=== PATIENT | female | born 1985 | race Caucasian/White ===

== ENCOUNTER 2017-09-11 09:10 | Emergency (ER) | payer BC, OTHER ==
[~2017-09-11] VITALS: Ht 160 cm; Wt 71.9 kg
[2017-09-11] MEDS ORDERED: LEVONOR/ETHI (09:17)
[2017-09-11] MEDS ORDERED: PEPC10TA6 PO (09:17)
[2017-09-11] MEDS ORDERED: MYLA1SUS PO (09:17)
[2017-09-11] MEDS ORDERED: TUMS500C PO (09:17)
[2017-09-11] MEDS ORDERED: SUCRALFATE SUSP 1GM/10ML UD PO ONE (10:00)
[2017-09-11] MEDS ORDERED: ONDANSETRON 4 MG ORAL DISINTEGRATING TAB (S0181) PO ONE (10:00)
[2017-09-11] MEDS ORDERED: GI COCKTAIL 50ML BTL(HYOSCYAMINE/MAALOX/LIDOCAINE VISCOUS)(1:3:1) PO ONE (10:00)
[2017-09-11] MEDS ORDERED: PANTOPRAZOLE 40MG TAB (PROTONIX) PO ONE (10:00)
[2017-09-11 10:09] LABS: BASO % 0.8 % (0.0-1.0); EOS # 0.1 10^3/uL (0.0-0.50); EOS % 3.5 % (0.0-3.0); LYMPH # 1.8 10^3/uL (1.5-4.5); LYMPH % 44.6 % (24.0-44.0); MEAN CORPUSCULAR HGB CONC 33.3 g/dl (32.0-36.5); MEAN CORPUSCULAR VOLUME 90.4 fl (80.0-96.0); MONO # 0.3 10^3/uL (0.0-0.8); MONO % 8.1 % (0.0-5.0); NEUTROPHILS # 1.7 10^3/uL (1.8-7.7); PLATELET COUNT, AUTOMATED 245 10^3/uL (150-450); RED CELL DISTRIBUTION WIDTH 12.5 % (11.5-14.5)
[2017-09-11 10:39] LABS: ALBUMIN 3.5 GM/DL (3.2-5.2); ALKALINE PHOSPHATASE 33 U/L (45-117); ALT/SGPT 24 U/L (12-78); ANION GAP 4 MEQ/L (8-16); AST/SGOT 15 U/L (7-37); BILIRUBIN,DIRECT < 0.1 MG/DL (0.0-0.2); BILIRUBIN,TOTAL 0.2 MG/DL (0.2-1.0); BLOOD UREA NITROGEN 7 MG/DL (7-18); CALCIUM LEVEL 9.1 MG/DL (8.5-10.1); CARBON DIOXIDE LEVEL 33 MEQ/L (21-32); CHLORIDE LEVEL 106 MEQ/L (98-107); CREATININE FOR GFR 0.67 MG/DL (0.55-1.02); GLOMERULAR FILTRATION RATE > 60.0 (>60); GLUCOSE, FASTING 85 MG/DL (70-105); POTASSIUM SERUM 3.9 MEQ/L (3.5-5.1); SODIUM LEVEL 143 MEQ/L (136-145)
[2017-09-11] MEDS ORDERED: SUCR1SS PO (11:39)
[2017-09-11] MEDS ORDERED: ZOFR4TAB3 PO (11:39)
[2017-09-11] MEDS ORDERED: PROT1TAB2 PO (11:39)
[2017-09-11 11:43] VITALS: BP 137/85
--- NOTE | 2017-09-11 11:43 | REP ---
RIGHT UPPER QUADRANT ULTRASOUND: Real-time sonographic evaluation of the right upper quadrant performed. The gallbladder demonstrates no evidence of intraluminal sludge or calculi, wall thickening or pericholecystic fluid. There is no intrahepatic or extrahepatic biliary dilatation, common bile duct measuring 3 mm in diameter. Liver and pancreas demonstrate homogeneous echotexture with no gross mass. Right kidney demonstrates no hydronephrosis or nephrolithiasis with normal size at 9.6 cm in length. IMPRESSION: Negative right upper quadrant ultrasound. Signed by Avi Schuster MD 09/11/2017 11:54 A
--- NOTE | 2017-09-11 17:08 | ECGEPIP ---
Stationary ECG Study [facility] - ED Test Date: 2017-09-11 Pat Name: BRAXTON GUILLERMO Department: Room: - Gender: F [employer] Liaison: gelacio : 1985 Requested By: Orin Fonseca Order Number: [id number] Reading MD: Orin Fonseca Measurements Intervals [place] Rate: 74 P: 57 MN: 117 QRS: 46 QRSD: 110 T: 42 QT: 345 QTc: 384 Interpretive Statements SINUS RHYTHM WITH SINUS ARRHYTHMIA WITH SHORT MN INTERVAL NO PRIOR FOR COMPARISON Electronically Signed On 09-11-2017 17:08:04 EST by Orin Fonseca
== END 2017-09-11 11:45 | disposition home or self-care (01) ==
LOC: M ED 09:10
DX: K29.00 Acute gastritis without bleeding (principal); R10.13 Epigastric pain; Z82.49 Family history of ischemic heart disease and other diseases of the circulatory system

== ENCOUNTER → 2017-10-27 | Outpatient (CLI) | payer OTHER ==
[2017-10-29 00:07] LABS: TISSUE TRANSGLUTAMINASE IgA <2 U/mL (0-3)
== END ==
LOC: M LAB 12:56
DX: R07.9 Chest pain, unspecified (principal)
CPT/HCPCS: 82784

== ENCOUNTER → 2017-11-09 | Outpatient (REF) | payer OTHER | LOC: M LAB REF 11:42 | DX: R07.9 Chest pain, unspecified (principal) | CPT/HCPCS: 87507 ==

== ENCOUNTER 2017-11-12 09:07 | Day surgery (SDC) | payer OTHER ==
[~2017-11-12 09:07] MED LIST: LIDOCAINE 2% MDV 20 ML VIAL As Ordered; PROPOFOL 200 MG/20 ML VIAL As Ordered
[2017-11-12] MEDS: NS 1,000 ML IV (09:30)
[2017-11-12] MEDS ORDERED: PROPOFOL 200 MG/20 ML VIAL As Ordered ×2 (11:37→11:38)
== END 2017-11-12 12:29 | disposition home or self-care (01) ==
LOC: M OPP 09:07
DX: K64.4 Residual hemorrhoidal skin tags (principal); K58.0 Irritable bowel syndrome with diarrhea; R19.4 Change in bowel habit; R12 Heartburn; R07.9 Chest pain, unspecified; R63.4 Abnormal weight loss; G47.33 Obstructive sleep apnea (adult) (pediatric); Z79.899 Other long term (current) drug therapy; Z88.8 Allergy status to other drugs, medicaments and biological substances
CPT/HCPCS: 45378

== ENCOUNTER 2020-03-11 20:05 | Emergency (ER) | payer OTHER ==
[~2020-03-11] VITALS: Ht 160 cm; Wt 70.9 kg
[~2020-03-11 20:05] MED LIST changes: +LEVONOR/ETHI; -LIDOCAINE 2% MDV 20 ML VIAL As Ordered; +MYLA1SUS PO; +PEPC10TA6 PO; -PROPOFOL 200 MG/20 ML VIAL As Ordered; +PROT1TAB2 PO; +SUCR1SS PO; +TUMS500C PO; +ZOFR4TAB14 PO
[2020-03-11] MEDS ORDERED: KETO0.02 (20:21)
[2020-03-11] MEDS ORDERED: LEVO0.1T (20:21)
[2020-03-11] MEDS ORDERED: NAC600CA (20:21)
[2020-03-11] MEDS ORDERED: NIFE1TAB52 (20:21)
[2020-03-11] MEDS ORDERED: ACET-683 PO (20:21)
[2020-03-11] MEDS ORDERED: HYDR200T3 (20:21)
[2020-03-11] MEDS ORDERED: LORazepam 2 MG/ML VIAL IV STA (20:43)
[2020-03-11] MEDS ORDERED: NS 1,000 ML IV ONE ×2 (20:45)
[2020-03-11] MEDS ORDERED: KETOROLAC 30 MG/ML 1ML VIAL IV ONE (20:45)
[2020-03-11 21:15] LABS: BASO # 0.1 10^3/uL (0.0-0.2); BASO % 0.8 % (0.0-1.0); EOS # 0.1 10^3/uL (0.0-0.5); EOS % 1.4 % (0.0-3.0); HEMATOCRIT 38.8 % (36.0-47.0); HEMOGLOBIN 13.3 g/dl (12.0-15.5); LYMPH # 1.9 10^3/uL (1.5-5.0); LYMPH % 29.4 % (24.0-44.0); MEAN CORPUSCULAR HGB CONC 34.3 g/dl (32.0-36.5); MEAN CORPUSCULAR VOLUME 87.6 fl (80.0-96.0); MONO # 0.5 10^3/uL (0.0-0.8); MONO % 7.7 % (0.0-5.0); NEUTROPHILS # 3.9 10^3/uL (1.5-8.5); NEUTROPHILS % 60.5 % (36.0-66.0); PLATELET COUNT, AUTOMATED 192 10^3/uL (150-450); RED BLOOD COUNT 4.43 10^6/uL (4.00-5.40); WHITE BLOOD COUNT 6.4 10^3/uL (4.0-10.0)
[2020-03-11 21:34] LABS: INR 0.93; PARTIAL THROMBOPLASTIN TIME 24.3 SECONDS (25.0-38.4); PROTHROMBIN TIME 12.2 SECONDS (11.8-14.0)
[2020-03-11 22:04] LABS: CPK CREATINE PHOSPHOKINASE 160 U/L (26-192); ETHYL ALCOHOL (ETHANOL) < 0.003 % (0.000-0.010); HCG, SERUM QUANTITATIVE < 1.0 MIU/ML; MB/CK RELATIVE INDEX 0.62 (< OR =4); TROPONIN I < 0.02 NG/ML (< 0.10)
--- NOTE | 2020-03-11 22:25 | REPVR ---
PROCEDURE INFORMATION: Exam: CT Head Without Contrast Exam date and time: 03/11/2020 10:13 PM Age: 34 years old Clinical indication: Dizziness; Additional info: CVA TECHNIQUE: Imaging protocol: Computed tomography of the head without contrast. Radiation optimization: All CT scans at this facility use at least one of these dose optimization techniques: automated exposure control; mA and/or kV adjustment per patient size (includes targeted exams where dose is matched to clinical indication); or iterative reconstruction. COMPARISON: No relevant prior studies available. FINDINGS: Brain: There is no evidence for an acute large vessel territorial infarct, intracranial hemorrhage, mass, mass effect, or herniation. The cortical gyration pattern, basal ganglia, thalami, brainstem, and cerebellum are normal in appearance. Ventricles: Normal. No ventriculomegaly. Bones/joints: Unremarkable. No acute fracture. Sinuses: Visualized sinuses are well-aerated. No air-fluid levels. Mastoid air cells: Visualized mastoid air cells are well-aerated. Soft tissues: Unremarkable. IMPRESSION: No acute intracranial abnormality. Electronically signed by: Henri Teradwell On 03/11/2020 22:24:33 PM
[2020-03-11 23:00] VITALS: BP 133/86
--- NOTE | 2020-03-12 11:56 | REP ---
REASON: Stroke-like symptoms. COMPARISON: Frontal view obtained as part of an abdominal series 11/29/2010. FINDINGS: The technique utilized in obtaining the radiograph has magnified the cardiac silhouette and accentuated the interstitial markings. The superior mediastinal structures are midline. The cardiac silhouette is unremarkable in size, shape, and position. The diaphragmatic surfaces of the lungs are regular, and the costophrenic angles are clear. The pulmonary [place] are clear. The imaged osseous structures are intact. IMPRESSION: There is no acute cardiopulmonary disease. Electronically Signed by Dallin Low DO 03/12/2020 11:59 A
--- NOTE | 2020-03-12 16:00 | ECGEPIP ---
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
== END 2020-03-11 23:38 | disposition home or self-care (01) ==
LOC: M ED 20:05
DX: R51 Headache (principal); M32.9 Systemic lupus erythematosus, unspecified; Z79.899 Other long term (current) drug therapy
CPT/HCPCS: 36415; 70450; 71045; 80047; 82550; 82553; 84702; 85025; 85610; 85730; 86850; 86900; 86901; 93005; 93041; 94760; 96374; 96375; 99285; G0480; J1885; J2060

== ENCOUNTER 2022-06-11 21:16 | Day surgery (SDC) | payer OTHER ==
[~2022-06-11] VITALS: Ht 160 cm; Wt 84.1 kg
[~2022-06-11 21:16] MED LIST changes: +ACET-683 PO; +HYDR200T3; +KETO0.02; +LEVO0.1T; +NAC600CA; +NIFE1TAB52
[2022-06-12] VITALS (9 sets, daily range): BP systolic 97–125; BP diastolic 60–73
[2022-06-12 00:37] LABS: BASO % 0.3 % (0.0-1.0); EOS # 0.1 10^3/uL (0.0-0.5); EOS % 0.7 % (0.0-3.0); HEMATOCRIT 37.8 % (36.0-47.0); HEMOGLOBIN 12.7 g/dl (12.0-15.5); LYMPH # 1.7 10^3/uL (1.5-5.0); LYMPH % 14.5 % (24.0-44.0); MEAN CORPUSCULAR HGB CONC 33.6 g/dl (32.0-36.5); MEAN CORPUSCULAR VOLUME 89.4 fl (80.0-96.0); MONO # 0.9 10^3/uL (0.0-0.8); MONO % 7.9 % (2.0-8.0); NEUTROPHILS % 76.3 % (36.0-66.0); PLATELET COUNT, AUTOMATED 195 10^3/uL (150-450); RED BLOOD COUNT 4.23 10^6/uL (4.00-5.40); WHITE BLOOD COUNT 11.8 10^3/uL (4.0-10.0)
[2022-06-12] MEDS ORDERED: ISOVUE-370 76% 100ML VIAL As Ordered ONE (00:47)
[2022-06-12 01:11] LABS: ALBUMIN 3.6 GM/DL (3.2-5.2); ALT/SGPT 37 U/L (12-78); BILIRUBIN,DIRECT 0.1 MG/DL (0.0-0.2); BILIRUBIN,TOTAL 0.3 MG/DL (0.2-1.0); BLOOD UREA NITROGEN 9 MG/DL (7-18); CALCIUM LEVEL 9.6 MG/DL (8.5-10.1); CARBON DIOXIDE LEVEL 27 MEQ/L (21-32); CHLORIDE LEVEL 104 MEQ/L (98-107); CREATININE FOR GFR 0.67 MG/DL (0.55-1.30); GLOMERULAR FILTRATION RATE > 60.0 (>60); GLUCOSE, FASTING 104 MG/DL (70-100); LIPASE 124 U/L (73-393); POTASSIUM SERUM 3.7 MEQ/L (3.5-5.1); SODIUM LEVEL 138 MEQ/L (136-145); TOTAL PROTEIN 6.5 GM/DL (6.4-8.2)
[2022-06-12 01:24] LABS: HCG, SERUM QUALITATIVE NEGATIVE (NEGATIVE)
[2022-06-12] MEDS ORDERED: cefTRIAXone SOD 1 GM in D5W MINI-BAG PLUS 50 ML IV ONE (03:10)
[2022-06-12] MEDS ORDERED: metroNIDAZOLE 500 MG in IV 1 EA IV ONE (03:10)
[2022-06-12] MEDS ORDERED: MORPHINE 2 MG/ML 1ML VIAL IV ONE (03:15)
[2022-06-12] MEDS ORDERED: ONDANSETRON 4MG 2ML VIAL IV ONE (03:15)
[2022-06-12] MEDS: NS 1,000 ML IV SCH ×5 (03:30→19:53)
[2022-06-12 03:38] LABS: C REACTIVE PROTEIN QUANTITATIV 9.49 MG/DL (0.00-0.30)
[2022-06-12 04:01] LABS: ERYTHROCYTE SEDIMENTATION RATE 15 mm/hr (0-20)
[2022-06-12 04:21] LABS: RSV AMPLIFICATION NEGATIVE (NEGATIVE)
[2022-06-12] MEDS ORDERED: HOME MED LIST COMPLETE! XX SCH (05:15)
[2022-06-12] MEDS ORDERED: LIDOCAINE 2% 100MG/5ML SDV (FOR ANES.) As Ordered ONE (05:27)
[2022-06-12] MEDS ORDERED: propofoL 200 MG/20 ML VIAL As Ordered ONE (05:27)
[2022-06-12] MEDS ORDERED: ROCURONIUM BROMIDE 50 MG/5 ML VIAL As Ordered ONE (05:28)
[2022-06-12] MEDS ORDERED: dexameTHASONE 4 MG/ML 1ML VIAL (J1100 PER 1MG) As Ordered ONE (05:29)
[2022-06-12] MEDS ORDERED: fentaNYL 250 MCG/5 ML INJECTION As Ordered ONE (05:29)
[2022-06-12] MEDS ORDERED: ONDANSETRON 4MG 2ML VIAL As Ordered ONE (05:29)
[2022-06-12] MEDS ORDERED: MIDAZOLAM INJ 2MG/2ML VIAL (J2250 PER 1MG) As Ordered ONE (05:29)
[2022-06-12] MEDS ORDERED: BUPIVACAINE/EPIN 0.25% 30 ML VIAL As Ordered ONE (05:29)
[2022-06-12] MEDS ORDERED: SUCCINYLCHOLINE 100 MG/5 ML SYRINGE (J0330) As Ordered ONE (06:03)
[2022-06-12] MEDS ORDERED: SUGAMMADEX SODIUM 500 MG/5 ML VIAL (BRIDION) As Ordered ONE (06:40)
[2022-06-12] MEDS ORDERED: KETOROLAC 60MG 2ML VIAL As Ordered ONE (06:40)
[2022-06-12] MEDS ORDERED: ACETAMINOPHEN 1000MG 100ML IV BTL (OFIRMEV) (J0131 PER 10MG) As Ordered ONE (06:52)
[2022-06-12] MEDS ORDERED: oxyCODONE 5MG TAB PO PRN (06:55)
[2022-06-12] MEDS ORDERED: LR 1,000 ML IV SCH (06:55)
[2022-06-12] MEDS ORDERED: fentaNYL 100 MCG/2 ML INJECTION IV PRN (06:55)
[2022-06-12] MEDS ORDERED: ONDANSETRON 4MG 2ML VIAL IV PRN (06:55)
[2022-06-12] MEDS ORDERED: MORPHINE 2 MG/ML 1ML VIAL IV PRN (07:10)
[2022-06-12] MEDS: PANTOPRAZOLE 40MG VIAL IV SCH (08:54)
[2022-06-12] MEDS: KETOROLAC 30 MG/ML 1ML VIAL IV SCH ×2 (12:51→18:54)
[2022-06-12] MEDS: ACETAMINOPHEN TAB 650MG DOSE (2X325MG) PO SCH ×2 (16:00→22:27)
[2022-06-12] MEDS: MORPHINE 2 MG/ML 1ML VIAL IV PRN ×2 (17:30→23:53)
[2022-06-13 00:04] VITALS: BP 138/76
[2022-06-13] MEDS: NS 1,000 ML IV SCH ×2 (01:12→10:26)
[2022-06-13] MEDS: KETOROLAC 30 MG/ML 1ML VIAL IV SCH ×4 (01:12→18:01)
[2022-06-13] MEDS ORDERED: cefTRIAXone SOD 1 GM in D5W MINI-BAG PLUS 50 ML IV SCH (03:00)
[2022-06-13 04:40] VITALS: BP 112/64
[2022-06-13] MEDS: MORPHINE 2 MG/ML 1ML VIAL IV PRN (04:55)
[2022-06-13 08:00] VITALS: BP 130/69
[2022-06-13] MEDS: ACETAMINOPHEN TAB 650MG DOSE (2X325MG) PO SCH ×2 (09:01→16:11)
[2022-06-13] MEDS: PANTOPRAZOLE 40MG VIAL IV SCH (09:01)
[2022-06-13 10:36] LABS: HEMATOCRIT 34.7 % (36.0-47.0); HEMOGLOBIN 10.8 g/dl (12.0-15.5); MEAN CORPUSCULAR HEMOGLOBIN 30.1 pg (27.0-33.0); MEAN CORPUSCULAR HGB CONC 31.1 g/dl (32.0-36.5); MEAN CORPUSCULAR VOLUME 96.7 fl (80.0-96.0); PLATELET COUNT, AUTOMATED 159 10^3/uL (150-450); RED BLOOD COUNT 3.59 10^6/uL (4.00-5.40); WHITE BLOOD COUNT 10.2 10^3/uL (4.0-10.0)
[2022-06-13 12:47] VITALS: BP 129/68
[2022-06-13] MEDS ORDERED: AUGM500T34 PO (17:41)
[2022-06-13] MEDS ORDERED: OXYC1TAB23 PO (17:41)
== END 2022-06-13 18:24 | disposition home or self-care (01) ==
LOC: M ED 21:16 → M SDC 06-12 05:06 → M PED 06-12 08:10 → M SDC 06-13 18:24
PROVIDERS: ATTEND Surgery
DX: K35.890 Other acute appendicitis without perforation or gangrene (principal); G47.30 Sleep apnea, unspecified
CPT/HCPCS: 36415; 44970; 80048; 80076; 83605; 83690; 84703; 85025; 85027; 85652; 86140; 87040; 87631; 88304; 96361; 96365; 96366; 96367; 96375; 96376; 99284; C9113; J0131; J0330; J0696; J1100; J1885; J2250; J2270; J2405; J3010; Q9967

== ENCOUNTER → 2023-07-17 | Outpatient (CLI) | payer OTHER ==
[~2023-07-17] MED LIST changes: +AUGM500T34 PO; -HYDR200T3; +HYDR200T46; -KETO0.02; +KETO5DRO33; +OXYC1TAB23 PO
[2023-07-17 17:42] LABS: BASO # 0.1 10^3/uL (0.0-0.2); BASO % 0.7 % (0.0-1.0); EOS # 0.2 10^3/uL (0.0-0.5); EOS % 2.6 % (0.0-3.0); HEMATOCRIT 41.3 % (36.0-47.0); HEMOGLOBIN 13.7 g/dl (12.0-15.5); LYMPH # 1.4 10^3/uL (1.5-5.0); LYMPH % 18.7 % (24.0-44.0); MEAN CORPUSCULAR HEMOGLOBIN 29.6 pg (27.0-33.0); MEAN CORPUSCULAR HGB CONC 33.2 g/dl (32.0-36.5); MEAN CORPUSCULAR VOLUME 89.2 fl (80.0-96.0); MONO # 0.4 10^3/uL (0.0-0.8); MONO % 5.5 % (2.0-8.0); NEUTROPHILS # 5.5 10^3/uL (1.5-8.5); NEUTROPHILS % 72.2 % (36.0-66.0); PLATELET COUNT, AUTOMATED 184 10^3/uL (150-450); RED BLOOD COUNT 4.63 10^6/uL (4.00-5.40); WHITE BLOOD COUNT 7.7 10^3/uL (4.0-10.0)
[2023-07-17 18:02] LABS: TOTAL IRON BINDING CAPACITY 372 UG/DL (250-425)
[2023-07-17 18:03] LABS: IRON (FE) 38 UG/DL (50-170); PERCENT SATURATION 10.2 % (13.2-45.0)
[2023-07-17 18:05] LABS: ERYTHROCYTE SEDIMENTATION RATE 19 mm/hr (0-20)
[2023-07-17 18:06] LABS: ALBUMIN 3.9 G/DL (3.2-5.2); ALKALINE PHOSPHATASE 47 U/L (46-116); ALT/SGPT 17 U/L (7.0-40); AST/SGOT 23 U/L (<34); BILIRUBIN,TOTAL 0.3 MG/DL (0.3-1.2); BLOOD UREA NITROGEN 6 MG/DL (9-23); CALCIUM LEVEL 9.5 MG/DL (8.5-10.1); CARBON DIOXIDE LEVEL 25 MMOL/L (20-31); CHLORIDE LEVEL 99 MMOL/L (98-107); CHOLESTEROL LEVEL 185 MG/DL (<200); CHOLESTEROL RISK RATIO 2.68 (<5); CREATININE FOR GFR 0.62 MG/DL (0.55-1.30); FREE T4 0.95 NG/DL (0.89-1.76); GLOMERULAR FILTRATION RATE > 60.0 (>60); GLUCOSE, FASTING 80 MG/DL (60-100); LDL CHOLESTEROL 94.4 MG/DL (<100); POTASSIUM SERUM 4.5 MMOL/L (3.5-5.1); SODIUM LEVEL 135 MMOL/L (136-145); THYROID STIMULATING HORMONE 1.095 uIU/ML (0.55-4.78); TRIGLYCERIDES LEVEL 108 MG/DL (<150)
[2023-07-20 14:08] LABS: ANA (HEP2) Positive (.); ANTINUCLEAR ANTIBODIES DIRECT Negative (Negative)
== END ==
LOC: M PLALAB 14:55
PROVIDERS: ATTEND Nurse Practitioner Family
DX: L65.9 Nonscarring hair loss, unspecified (principal); M32.9 Systemic lupus erythematosus, unspecified; Z13.220 Encounter for screening for lipoid disorders